=== PATIENT | female | born 1995 | race Caucasian/White ===

== ENCOUNTER 2017-10-15 05:36 | Emergency (ER) | payer OTHER ==
[~2017-10-15] VITALS: Ht 162.6 cm; Wt 63.8 kg
[2017-10-15 07:27] VITALS: BP 122/77
== END 2017-10-15 07:28 | disposition home or self-care (01) ==
LOC: EME 05:36
DX: S10.91XA Abrasion of unspecified part of neck, initial encounter (principal); Z77.21 Contact with and (suspected) exposure to potentially hazardous body fluids; Y04.0XXA Assault by unarmed brawl or fight, initial encounter; Y92.239 Unspecified place in hospital as the place of occurrence of the external cause; Y99.0 Civilian activity done for income or pay
CPT/HCPCS: 86706; 86803; 99281; 99284